=== PATIENT | female | born 2000 | race Caucasian/White ===

== ENCOUNTER 2018-02-14 02:04 | Emergency (ER) | payer OTHER ==
[2018-02-14] MEDS: ACETAMINOPHEN TAB 650MG DOSE (2X325MG) PO (02:56)
== END 2018-02-14 05:25 | disposition home or self-care (01) ==
LOC: M ED 02:04
DX: S05.12XA Contusion of eyeball and orbital tissues, left eye, initial encounter (principal); S60.221A Contusion of right hand, initial encounter; Y04.8XXA Assault by other bodily force, initial encounter; Y92.018 Other place in single-family (private) house as the place of occurrence of the external cause; F17.210 Nicotine dependence, cigarettes, uncomplicated
CPT/HCPCS: 73130